=== PATIENT | female | born 1950 | race Caucasian/White ===

== ENCOUNTER 2023-08-08 12:19 | Emergency (ER) | payer MEDICARE, OTHER ==
[2023-08-08] MEDS ORDERED: Sodium Chloride 0.9% 10 ML Syringe FLUSH PRN (13:10)
[2023-08-08] MEDS: Albuterol/Ipratropium 3.0-0.5 MG/3 ML Neb Soln NEB ONE ×2 (13:31→15:42)
[2023-08-08 13:42] LABS: BASOPHILS PERCENT AUTO 0.1 % (0.1-1.3); EOSINOPHILS ABSOLUTE AUTO 0.19 K/uL (0.00-0.40); EOSINOPHILS PERCENT AUTO 2.5 % (0.0-5.4); HEMATOCRIT 32.7 % (34.3-46.0); HEMOGLOBIN 11.7 g/dL (11.2-15.5); IMMATURE GRAN ABSOLUTE AUTO 0.03 K/uL (0.00-0.23); IMMATURE GRAN PERCENT AUTO 0.4 % (0.0-0.7); LYMPHOCYTES ABSOLUTE AUTO 1.71 K/uL (0.8-3.3); LYMPHOCYTES PERCENT AUTO 22.1 % (11.4-47.7); MEAN CORPUSCULAR HEMOGLOBIN 30.7 pg (31.6-35.5); MEAN CORPUSCULAR HGB CONC 35.8 g/dL (31.6-35.5); MEAN CORPUSCULAR VOLUME 85.8 fL (81.4-99.0); MONOCYTES ABSOLUTE AUTO 0.79 K/uL (0.20-0.90); MONOCYTES PERCENT AUTO 10.2 % (3.3-12.6); NEUTROPHILS ABSOLUTE AUTO 5.02 K/uL (1.0-7.6); NEUTROPHILS PERCENT AUTO 64.7 % (40.0-78.1); PLATELET COUNT,PLT 252 K/uL (130-375); RED BLOOD CELL COUNT 3.81 M/uL (3.77-5.24); WHITE BLOOD CELL COUNT,WBC 7.8 K/uL (3.2-11.0)
[2023-08-08 13:46] LABS: BASOPHILS ABSOLUTE AUTO 0.01 K/uL (0.00-0.10)
[2023-08-08 14:12] LABS: ALANINE AMINOTRANSFERASE,ALT 25 U/L (12-78); ALBUMIN 3.7 g/dL (3.4-5.0); ALKALINE PHOSPHATASE 112 U/L (46-116); ASPARTATE AMNIOTRANSFERASE,AST 24 U/L (15-37); BILIRUBIN TOTAL 0.9 mg/dL (0.2-1.0); BLOOD UREA NITROGEN,BUN 14 mg/dL (7-18); CALCIUM 9.7 mg/dL (8.5-10.1); CARBON DIOXIDE,CO2 23 mmol/L (21-32); CHLORIDE,CL 93 mmol/L (100-108); EST CRCL DRUG DOSING (CG) 43.91 mL/min; ESTIMATED GFR 60 mL/min (>60); GLUCOSE RANDOM 91 mg/dL (74-106); POTASSIUM,K 4.4 mmol/L (3.6-5.2); PROTEIN TOTAL,TP 7.5 g/dL (6.4-8.2); SODIUM,NA 127 mmol/L (140-148); TROPONIN I HIGH SENSITIVITY 15.4 pg/mL (<=60.3)
[2023-08-08 14:13] LABS: ANION GAP 15.4 mmol/L (5.0-14.0)
[2023-08-08] MEDS: Bumetanide 1 MG/4 ML MDV IVPUSH ONE (15:42)
== END 2023-08-08 17:21 | disposition home or self-care (01) ==
LOC: JP.ED 12:19
DX: J44.1 Chronic obstructive pulmonary disease with (acute) exacerbation (principal); I50.812 Chronic right heart failure; I25.10 Atherosclerotic heart disease of native coronary artery without angina pectoris; I25.2 Old myocardial infarction; K21.9 Gastro-esophageal reflux disease without esophagitis; Z99.81 Dependence on supplemental oxygen; Z87.891 Personal history of nicotine dependence; Z86.16 Personal history of COVID-19; Z79.899 Other long term (current) drug therapy; Z79.82 Long term (current) use of aspirin; Z88.0 Allergy status to penicillin; Z88.2 Allergy status to sulfonamides
CPT/HCPCS: 36415; 71046; 71046-26; 80053; 83880; 84484; 85025; 94640; 96374; 99284; 99285-25; J3490; J7620

== ENCOUNTER 2024-07-15 11:06 | Inpatient (IN) | payer MEDICARE, OTHER ==
[2024-07-15 11:38] LABS: BASOPHILS PERCENT AUTO 0.2 % (0.1-1.3); EOSINOPHILS ABSOLUTE AUTO 0.07 K/uL (0.00-0.40); EOSINOPHILS PERCENT AUTO 1.3 % (0.0-5.4); HEMATOCRIT 31.1 % (34.3-46.0); HEMOGLOBIN 10.2 g/dL (11.2-15.5); IMMATURE GRAN ABSOLUTE AUTO 0.07 K/uL (0.00-0.23); IMMATURE GRAN PERCENT AUTO 1.3 % (0.0-0.7); LYMPHOCYTES ABSOLUTE AUTO 1.13 K/uL (0.8-3.3); LYMPHOCYTES PERCENT AUTO 21.2 % (11.4-47.7); MEAN CORPUSCULAR HEMOGLOBIN 33.4 pg (31.6-35.5); MEAN CORPUSCULAR HGB CONC 32.8 g/dL (31.6-35.5); MONOCYTES ABSOLUTE AUTO 0.57 K/uL (0.20-0.90); MONOCYTES PERCENT AUTO 10.7 % (3.3-12.6); NEUTROPHILS ABSOLUTE AUTO 3.47 K/uL (1.0-7.6); NEUTROPHILS PERCENT AUTO 65.3 % (40.0-78.1); PLATELET COUNT,PLT 149 K/uL (130-375); RED BLOOD CELL COUNT 3.05 M/uL (3.77-5.24); WHITE BLOOD CELL COUNT,WBC 5.3 K/uL (3.2-11.0)
[2024-07-15 12:04] LABS: BASOPHILS ABSOLUTE AUTO 0.01 K/uL (0.00-0.10)
[2024-07-15 12:07] LABS: A/G RATIO 1.1 (1.2-2.2); ALANINE AMINOTRANSFERASE,ALT 21 U/L (12-78); ALBUMIN 3.6 g/dL (3.4-5.0); ALKALINE PHOSPHATASE 140 U/L (46-116); ANION GAP 13.3 mmol/L (5.0-14.0); ASPARTATE AMNIOTRANSFERASE,AST 18 U/L (15-37); BILIRUBIN TOTAL 0.8 mg/dL (0.2-1.0); BLOOD UREA NITROGEN,BUN 32 mg/dL (7-18); CALCIUM 9.1 mg/dL (8.5-10.1); CARBON DIOXIDE,CO2 26 mmol/L (21-32); CHLORIDE,CL 101 mmol/L (100-108); CREATININE 2.1 mg/dL (0.6-1.0); ESTIMATED GFR 24 mL/min (>60); GLUCOSE RANDOM 105 mg/dL (74-106); POTASSIUM,K 4.3 mmol/L (3.6-5.2); PRO B-TYPE NATRIUR PEPT,BNPPRO 3435 pg/mL (5-125); SODIUM,NA 136 mmol/L (140-148); TROPONIN I HIGH SENSITIVITY 16.1 pg/mL (<=60.3)
[2024-07-15] MEDS: Bumetanide 1 MG/4 ML MDV IVPUSH ONE (12:41)
[2024-07-15] MEDS: Albuterol/Ipratropium 3.0-0.5 MG/3 ML Neb Soln NEB ONE (14:06)
[2024-07-15] MEDS: Iopamidol 755 Mg/ML 100 ML Bottle IV SCH (16:28)
[2024-07-15] MEDS: Sodium Chloride 0.9% 100 ML IV SCH (16:28)
[2024-07-15] MEDS: cefTRIAXone 1 GM in Sodium Chloride 0.9% 50 ML IV SCH (17:26)
[2024-07-15] MEDS ORDERED: Ondansetron 4 MG Tab.DIS PO PRN (17:47)
[2024-07-15] MEDS ORDERED: Acetaminophen 325 MG Tab PO PRN (17:47)
[2024-07-15] MEDS ORDERED: Ondansetron 4 MG/2 ML SDV IV PRN (17:47)
[2024-07-15] MEDS ORDERED: Magnesium Hydroxide 400 MG/5 ML Susp 30 ML Cup PO PRN (17:47)
[2024-07-15] MEDS: guaiFENesin/Dextromethorphan 100-10 MG/5 ML Soln 10 ML Cup PO PRN (18:14)
[2024-07-15] MEDS: Benzonatate 100 MG Cap PO PRN (18:15)
[2024-07-15] MEDS: Sodium Chloride 0.9% 1,000 ML IV SCH (18:15)
[2024-07-15] MEDS: Lactobacillus Rhamnosus GG (Probiotic) Cap PO SCH (20:54)
[2024-07-15] MEDS: Apixaban 5 MG Tab PO SCH (20:54)
[2024-07-15] MEDS: Doxycycline 100 MG Cap PO SCH (20:54)
[2024-07-15] MEDS: Metoprolol Succinate 50 MG Tab.ER PO SCH (20:54)
[2024-07-15] MEDS: Albuterol/Ipratropium 3.0-0.5 MG/3 ML Neb Soln INH SCH (20:55)
[2024-07-15] MEDS: Formoterol/Mometasone 200-5 MCG 8.8 GM Inhaler INH SCH (20:55)
[2024-07-15] MEDS: Losartan 50 MG Tab PO SCH (20:55)
[2024-07-15] MEDS ORDERED: Non-Formulary Medication 1 Each (Budesonide/Formoterol [Symbicort 160-4.5 Mcg Inhaler (6 G INH SCH (21:00)
[2024-07-16] MEDS: Albuterol 0.083% 2.5 MG/3 ML Neb Soln NEB PRN (03:04)
[2024-07-16 06:01] LABS: HEMATOCRIT 30.4 % (34.3-46.0); HEMOGLOBIN 9.9 g/dL (11.2-15.5); MEAN CORPUSCULAR HEMOGLOBIN 33.2 pg (31.6-35.5); MEAN CORPUSCULAR HGB CONC 32.6 g/dL (31.6-35.5); RED BLOOD CELL COUNT 2.98 M/uL (3.77-5.24); WHITE BLOOD CELL COUNT,WBC 4.9 K/uL (3.2-11.0)
[2024-07-16 06:17] LABS: ANION GAP 10.6 mmol/L (5.0-14.0); CALCIUM 8.7 mg/dL (8.5-10.1); EST CRCL DRUG DOSING (CG) 21.63 mL/min; POTASSIUM,K 3.7 mmol/L (3.6-5.2)
[2024-07-16] MEDS: Pantoprazole 40 MG Tab.CR PO SCH (07:12)
[2024-07-16] MEDS: Levothyroxine 112 MCG Tab PO SCH (07:12)
[2024-07-16] MEDS: Levothyroxine 25 MCG Tab PO SCH (07:12)
[2024-07-16] MEDS ORDERED: Non-Formulary Medication 1 Each (Levothyroxine [Levothyroxine] 125 MCG Tablet) PO SCH (07:30)
[2024-07-16] MEDS: Loratadine 10 MG Tab PO SCH (08:31)
[2024-07-16] MEDS: Aspirin 81 MG Tab.EC PO SCH (08:31)
[2024-07-16] MEDS: Amiodarone 200 MG Tab PO SCH (08:32)
[2024-07-16] MEDS: Isosorbide Mononitrate 30 MG Tab.ER PO SCH (08:34)
[2024-07-16] MEDS ORDERED: Non-Formulary Medication 1 Each (Omeprazole [Omeprazole] 40 MG Capsule.Dr) PO SCH (09:00)
[2024-07-16] MEDS ORDERED: Non-Formulary Medication 1 Each (Fexofenadine [Allegra] 180 MG Tablet) PO SCH (09:00)
[2024-07-16] MEDS ORDERED: METOPROLOL 100 MG PO SCH (21:00)
[2024-07-16] MEDS ORDERED: SYMBICORT INH SCH (21:00)
[2024-07-16] MEDS ORDERED: Formoterol/Mometasone 200-5 MCG 8.8 GM Inhaler INH SCH (21:00)
[2024-07-16] MEDS: Metoprolol Succinate 50 MG Tab.ER PO SCH (21:11)
[2024-07-16] MEDS: Losartan 50 MG Tab PO SCH (21:12)
[2024-07-16] MEDS: Apixaban 5 MG Tab PO SCH (21:12)
[2024-07-16] MEDS: Formoterol/Mometasone 200-5 MCG 8.8 GM Inhaler INH SCH (21:12)
[2024-07-17] MEDS ORDERED: OMEPRAZOLE 40MG CAP (PTOM) PO SCH (07:30)
[2024-07-17] MEDS ORDERED: LEVOTHYROXINE 137 MCG PO SCH (07:30)
[2024-07-17] MEDS: Pantoprazole 40 MG Tab.CR PO SCH (08:09)
[2024-07-17] MEDS: Levothyroxine 112 MCG Tab PO SCH (08:09)
[2024-07-17] MEDS: Levothyroxine 25 MCG Tab PO SCH (08:09)
[2024-07-17] MEDS ORDERED: AMIODARONE 200 MG PO SCH (09:00)
[2024-07-17] MEDS: Sennosides/Docusate Sodium 50-8.6 MG Tab PO PRN (09:18)
[2024-07-17] MEDS: Isosorbide Mononitrate 30 MG Tab.ER PO SCH (09:19)
[2024-07-17] MEDS: Amiodarone 200 MG Tab PO SCH (09:19)
== END 2024-07-17 11:15 | disposition home or self-care (01) | DRG 202 ==
LOC: JP.ED 11:06 → JP.MS 17:18 → OBSVTOIN 07-16 13:12
PROVIDERS: ADMIT Internal Medicine; ATTEND Internal Medicine
PROC: 5A0935A Assistance with Respiratory Ventilation, Less than 24 Consecutive Hours, High Flow/Velocity Cannula (ICD-10-PCS; principal; 2024-07-15)
DX: J20.9 Acute bronchitis, unspecified (principal); J96.21 Acute and chronic respiratory failure with hypoxia; I50.32 Chronic diastolic (congestive) heart failure; Z66 Do not resuscitate; H91.90 Unspecified hearing loss, unspecified ear; I25.10 Atherosclerotic heart disease of native coronary artery without angina pectoris; I25.2 Old myocardial infarction; Z79.890 Hormone replacement therapy; J44.9 Chronic obstructive pulmonary disease, unspecified; K21.9 Gastro-esophageal reflux disease without esophagitis; N18.9 Chronic kidney disease, unspecified; G89.29 Other chronic pain; M54.9 Dorsalgia, unspecified; I50.812 Chronic right heart failure; J43.9 Emphysema, unspecified; I48.0 Paroxysmal atrial fibrillation; N18.32 Chronic kidney disease, stage 3b; Z85.118 Personal history of other malignant neoplasm of bronchus and lung; Z88.0 Allergy status to penicillin; Z88.2 Allergy status to sulfonamides; Z79.01 Long term (current) use of anticoagulants; Z98.890 Other specified postprocedural states; Z79.82 Long term (current) use of aspirin; Z98.49 Cataract extraction status, unspecified eye; Z86.16 Personal history of COVID-19; Z79.899 Other long term (current) drug therapy; Z99.81 Dependence on supplemental oxygen; Z96.619 Presence of unspecified artificial shoulder joint; Z96.659 Presence of unspecified artificial knee joint
CPT/HCPCS: 36415 ×2; 71045; 71275; 80048; 80053; 83605; 83880; 84484; 85025; 85027; 85379; 87070; 87205; 94640 ×7; 94667; 96374; 99285; A9270 ×28; J0696; J3490; J7030 ×2; Q9967; 87077; 96365; 96375; 99222; 99232; 99238; G0378

== ENCOUNTER 2024-09-06 09:00 | Inpatient (IN) | payer MEDICARE, OTHER ==
[2024-09-06 09:53] LABS: BASE EXCESS ARTERIAL 1.2 mm/L; BICARBONATE,ARTERIAL 24.6 mmol/L (22.0-26.0); O2 SATURATION ARTERIAL 89.4 % (95.0-98.0); OXYHEMOGLOBIN 85.8 %; PCO2 ARTERIAL 35.6 mmHg (35.0-42.0); PO2 ARTERIAL 58.4 mmHg (75.0-100.0); TOTAL HEMOGLOBIN 8.7 g/dL (12.0-16.0)
[2024-09-06 09:55] LABS: BASOPHILS PERCENT AUTO 0.1 % (0.1-1.3); EOSINOPHILS ABSOLUTE AUTO 0.09 K/uL (0.00-0.40); EOSINOPHILS PERCENT AUTO 1.2 % (0.0-5.4); IMMATURE GRAN ABSOLUTE AUTO 0.06 K/uL (0.00-0.23); IMMATURE GRAN PERCENT AUTO 0.8 % (0.0-0.7); LYMPHOCYTES ABSOLUTE AUTO 0.55 K/uL (0.8-3.3); LYMPHOCYTES PERCENT AUTO 7.3 % (11.4-47.7); MONOCYTES ABSOLUTE AUTO 0.48 K/uL (0.20-0.90); MONOCYTES PERCENT AUTO 6.4 % (3.3-12.6); NEUTROPHILS ABSOLUTE AUTO 6.35 K/uL (1.0-7.6); NEUTROPHILS PERCENT AUTO 84.2 % (40.0-78.1); PLATELET COUNT,PLT 133 K/uL (130-375); RED BLOOD CELL COUNT 2.42 M/uL (3.77-5.24); WHITE BLOOD CELL COUNT,WBC 7.5 K/uL (3.2-11.0)
[2024-09-06 09:58] LABS: BASOPHILS ABSOLUTE AUTO 0.01 K/uL (0.00-0.10)
[2024-09-06 10:14] LABS: A/G RATIO 1.0 (1.2-2.2); ALANINE AMINOTRANSFERASE,ALT 17 U/L (12-78); ASPARTATE AMNIOTRANSFERASE,AST 14 U/L (15-37); BILIRUBIN TOTAL 0.9 mg/dL (0.2-1.0); BLOOD UREA NITROGEN,BUN 26 mg/dL (7-18); CARBON DIOXIDE,CO2 29 mmol/L (21-32); CHLORIDE,CL 103 mmol/L (100-108); CREATININE 2.0 mg/dL (0.6-1.0); EST CRCL DRUG DOSING (CG) 21.63 mL/min; ESTIMATED GFR 26 mL/min (>60); GLUCOSE RANDOM 117 mg/dL (74-106); POTASSIUM,K 3.7 mmol/L (3.6-5.2); PROTEIN TOTAL,TP 6.7 g/dL (6.4-8.2); SODIUM,NA 140 mmol/L (140-148)
[2024-09-06] MEDS: methylPREDNISolone Sodium Succinate 125 MG/2 ML SDV IVPUSH ONE (10:32)
[2024-09-06 14:19] LABS: RETICULOCYTE COUNT PERCENT 4.58 % (0.53-2.48)
[2024-09-06 14:22] LABS: IRON,FE 39 ug/dL (50-170); PERCENT FE SATURATION 15 % (20-55)
[2024-09-06] MEDS ORDERED: Sodium Chloride 0.9% 10 ML Syringe FLUSH ONE (15:20)
[2024-09-06] MEDS ORDERED: Iopamidol 755 Mg/ML 100 ML Bottle IV ONE (15:20)
[2024-09-06] MEDS: Iopamidol 755 Mg/ML 100 ML Bottle IV SCH (15:44)
[2024-09-06] MEDS: Sodium Chloride 0.9% 10 ML Syringe FLUSH ONE (15:44)
[2024-09-06] MEDS ORDERED: Sodium Chloride 0.9% 10 ML Syringe IV PRN (18:00)
[2024-09-06] MEDS ORDERED: Non-Formulary Medication 1 Each (Losartan [Cozaar] 100 MG Tablet) PO SCH (21:00)
[2024-09-06] MEDS ORDERED: Non-Formulary Medication 1 Each (Cyclobenzaprine [Flexeril] 10 MG Tablet) PO SCH (21:00)
[2024-09-07 05:58] LABS: BASOPHILS PERCENT AUTO 0.0 % (0.1-1.3); EOSINOPHILS PERCENT AUTO 0.0 % (0.0-5.4); IMMATURE GRAN ABSOLUTE AUTO 0.05 K/uL (0.00-0.23); IMMATURE GRAN PERCENT AUTO 0.9 % (0.0-0.7); LYMPHOCYTES ABSOLUTE AUTO 0.37 K/uL (0.8-3.3); LYMPHOCYTES PERCENT AUTO 6.3 % (11.4-47.7); MONOCYTES ABSOLUTE AUTO 0.26 K/uL (0.20-0.90); MONOCYTES PERCENT AUTO 4.4 % (3.3-12.6); NEUTROPHILS ABSOLUTE AUTO 5.18 K/uL (1.0-7.6); NEUTROPHILS PERCENT AUTO 88.4 % (40.0-78.1); PLATELET COUNT,PLT 118 K/uL (130-375); RED BLOOD CELL COUNT 2.28 M/uL (3.77-5.24); WHITE BLOOD CELL COUNT,WBC 5.9 K/uL (3.2-11.0)
[2024-09-07 06:07] LABS: BASOPHILS ABSOLUTE AUTO 0.00 K/uL (0.00-0.10); EOSINOPHILS ABSOLUTE AUTO 0.00 K/uL (0.00-0.40)
[2024-09-07 06:15] LABS: A/G RATIO 1.0 (1.2-2.2); ALANINE AMINOTRANSFERASE,ALT 15 U/L (12-78); ASPARTATE AMNIOTRANSFERASE,AST 13 U/L (15-37); BILIRUBIN TOTAL 0.4 mg/dL (0.2-1.0); BLOOD UREA NITROGEN,BUN 28 mg/dL (7-18); CARBON DIOXIDE,CO2 26 mmol/L (21-32); CHLORIDE,CL 104 mmol/L (100-108); CREATININE 1.8 mg/dL (0.6-1.0); EST CRCL DRUG DOSING (CG) 24.04 mL/min; ESTIMATED GFR 29 mL/min (>60); GLUCOSE RANDOM 137 mg/dL (74-106); POTASSIUM,K 4.1 mmol/L (3.6-5.2); PROTEIN TOTAL,TP 6.2 g/dL (6.4-8.2); SODIUM,NA 138 mmol/L (140-148)
[2024-09-07] MEDS ORDERED: Non-Formulary Medication 1 Each (Levothyroxine [Levothyroxine] 125 MCG Tablet) PO SCH (07:30)
[2024-09-07] MEDS: Cholecalciferol (Vitamin D3) 25 MCG Tab PO SCH (08:36)
[2024-09-07] MEDS: Diltiazem 120 MG Cap.CD PO SCH (08:37)
[2024-09-07] MEDS ORDERED: DILTIAZEM 240 MG PO SCH (09:00)
[2024-09-07] MEDS ORDERED: METOPROLOL SUCCINATE 100 MG PO SCH (09:00)
[2024-09-07] MEDS ORDERED: Non-Formulary Medication 1 Each (Fexofenadine [Allegra] 180 MG Tablet) PO SCH (09:00)
[2024-09-07] MEDS ORDERED: Non-Formulary Medication 1 Each (Cholecalciferol (Vitamin D3) [Vitamin D3] 1,250 MCG Table PO SCH (09:00)
[2024-09-07] MEDS: SYMBICORT INH SCH (14:22)
[2024-09-07 18:16] LABS: BASE EXCESS VENOUS -0.8 mm/L; BICARBONATE,VENOUS 23.8 mmol/L; O2 SATURATION VENOUS 88.4; OXYHEMOGLOBIN 84.0 %; PCO2 VENOUS 41.7 mm/Hg; PH,VENOUS 7.374 (7.350-7.450); PO2 VENOUS 59.5 mm/Hg; TOTAL HEMOGLOBIN 9.7 g/dL (12.0-16.0)
[2024-09-07 18:32] LABS: BLOOD UREA NITROGEN,BUN 34.0 mg/dL (7-18); CARBON DIOXIDE,CO2 27.0 mmol/L (21-32); CHLORIDE,CL 103.0 mmol/L (100-108); CREATININE 2.0 mg/dL (0.6-1.0); EST CRCL DRUG DOSING (CG) 21.63 mL/min; ESTIMATED GFR 26.0 mL/min (>60); GLUCOSE RANDOM 134.0 mg/dL (74-106); POTASSIUM,K 4.1 mmol/L (3.6-5.2); SODIUM,NA 139.0 mmol/L (140-148)
[2024-09-07] MEDS: Ipratropium 0.02% 0.5 MG/2.5 ML Neb Soln NEB SCH (19:45)
[2024-09-08 05:45] LABS: BASOPHILS PERCENT AUTO 0.1 % (0.1-1.3); EOSINOPHILS PERCENT AUTO 0.0 % (0.0-5.4); IMMATURE GRAN ABSOLUTE AUTO 0.06 K/uL (0.00-0.23); IMMATURE GRAN PERCENT AUTO 0.6 % (0.0-0.7); LYMPHOCYTES ABSOLUTE AUTO 0.62 K/uL (0.8-3.3); LYMPHOCYTES PERCENT AUTO 6.6 % (11.4-47.7); MONOCYTES ABSOLUTE AUTO 0.63 K/uL (0.20-0.90); MONOCYTES PERCENT AUTO 6.7 % (3.3-12.6); NEUTROPHILS ABSOLUTE AUTO 8.04 K/uL (1.0-7.6); NEUTROPHILS PERCENT AUTO 86.0 % (40.0-78.1); PLATELET COUNT,PLT 130 K/uL (130-375); RED BLOOD CELL COUNT 2.56 M/uL (3.77-5.24); WHITE BLOOD CELL COUNT,WBC 9.4 K/uL (3.2-11.0)
[2024-09-08 05:53] LABS: BASOPHILS ABSOLUTE AUTO 0.01 K/uL (0.00-0.10); EOSINOPHILS ABSOLUTE AUTO 0.00 K/uL (0.00-0.40)
[2024-09-08 06:05] LABS: A/G RATIO 1.1 (1.2-2.2); ALANINE AMINOTRANSFERASE,ALT 16 U/L (12-78); ASPARTATE AMNIOTRANSFERASE,AST 10 U/L (15-37); BILIRUBIN TOTAL 0.4 mg/dL (0.2-1.0); BLOOD UREA NITROGEN,BUN 37 mg/dL (7-18); CARBON DIOXIDE,CO2 28 mmol/L (21-32); CHLORIDE,CL 106 mmol/L (100-108); CREATININE 2.0 mg/dL (0.6-1.0); EST CRCL DRUG DOSING (CG) 21.63 mL/min; ESTIMATED GFR 26 mL/min (>60); GLUCOSE RANDOM 111 mg/dL (74-106); POTASSIUM,K 4.0 mmol/L (3.6-5.2); PROTEIN TOTAL,TP 5.9 g/dL (6.4-8.2); SODIUM,NA 141 mmol/L (140-148)
[2024-09-09 06:00] LABS: BASOPHILS PERCENT AUTO 0.1 % (0.1-1.3); EOSINOPHILS PERCENT AUTO 0.1 % (0.0-5.4); IMMATURE GRAN ABSOLUTE AUTO 0.05 K/uL (0.00-0.23); IMMATURE GRAN PERCENT AUTO 0.6 % (0.0-0.7); LYMPHOCYTES ABSOLUTE AUTO 0.70 K/uL (0.8-3.3); LYMPHOCYTES PERCENT AUTO 8.0 % (11.4-47.7); MONOCYTES ABSOLUTE AUTO 0.65 K/uL (0.20-0.90); MONOCYTES PERCENT AUTO 7.4 % (3.3-12.6); NEUTROPHILS ABSOLUTE AUTO 7.32 K/uL (1.0-7.6); NEUTROPHILS PERCENT AUTO 83.8 % (40.0-78.1); PLATELET COUNT,PLT 132 K/uL (130-375); RED BLOOD CELL COUNT 2.83 M/uL (3.77-5.24); WHITE BLOOD CELL COUNT,WBC 8.7 K/uL (3.2-11.0)
[2024-09-09 06:02] LABS: BASOPHILS ABSOLUTE AUTO 0.01 K/uL (0.00-0.10); EOSINOPHILS ABSOLUTE AUTO 0.01 K/uL (0.00-0.40)
[2024-09-09 06:20] LABS: A/G RATIO 1.0 (1.2-2.2); ALANINE AMINOTRANSFERASE,ALT 18 U/L (12-78); ASPARTATE AMNIOTRANSFERASE,AST 13 U/L (15-37); BILIRUBIN TOTAL 0.4 mg/dL (0.2-1.0); BLOOD UREA NITROGEN,BUN 40 mg/dL (7-18); CARBON DIOXIDE,CO2 29 mmol/L (21-32); CHLORIDE,CL 103 mmol/L (100-108); CREATININE 1.9 mg/dL (0.6-1.0); EST CRCL DRUG DOSING (CG) 22.77 mL/min; ESTIMATED GFR 28 mL/min (>60); GLUCOSE RANDOM 97 mg/dL (74-106); POTASSIUM,K 3.8 mmol/L (3.6-5.2); PROTEIN TOTAL,TP 6.5 g/dL (6.4-8.2); SODIUM,NA 141 mmol/L (140-148)
[2024-09-10 06:22] LABS: PLATELET COUNT,PLT 144.0 K/uL (130-375); RED BLOOD CELL COUNT 2.78 M/uL (3.77-5.24); WHITE BLOOD CELL COUNT,WBC 8.5 K/uL (3.2-11.0)
[2024-09-10 06:36] LABS: BLOOD UREA NITROGEN,BUN 42.0 mg/dL (7-18); CARBON DIOXIDE,CO2 30.0 mmol/L (21-32); CHLORIDE,CL 104.0 mmol/L (100-108); CREATININE 1.6 mg/dL (0.6-1.0); EST CRCL DRUG DOSING (CG) 27.04 mL/min; ESTIMATED GFR 34.0 mL/min (>60); GLUCOSE RANDOM 92.0 mg/dL (74-106); POTASSIUM,K 3.6 mmol/L (3.6-5.2); SODIUM,NA 140.0 mmol/L (140-148)
[2024-09-10] MEDS: Magnesium Hydroxide 400 MG/5 ML Susp 30 ML Cup PO ONE (10:18)
== END 2024-09-10 14:10 | disposition home or self-care (01) | DRG 189 ==
LOC: JP.ED 09:00 → JP.ICU 11:41 → JP.MS 09-09 16:31
PROVIDERS: ADMIT Student in an Organized Health Care Education/Training Program; ATTEND Internal Medicine
PROC: 5A0935A Assistance with Respiratory Ventilation, Less than 24 Consecutive Hours, High Flow/Velocity Cannula (ICD-10-PCS; principal; 2024-09-06)
PROC: 4A033R1 Measurement of Arterial Saturation, Peripheral, Percutaneous Approach (ICD-10-PCS; 2024-09-06)
PROC: 3E03329 Introduction of Other Anti-infective into Peripheral Vein, Percutaneous Approach (ICD-10-PCS; 2024-09-06)
PROC: 30233N1 Transfusion of Nonautologous Red Blood Cells into Peripheral Vein, Percutaneous Approach (ICD-10-PCS; 2024-09-07)
DX: J96.21 Acute and chronic respiratory failure with hypoxia (principal); J44.1 Chronic obstructive pulmonary disease with (acute) exacerbation; I13.0 Hypertensive heart and chronic kidney disease with heart failure and stage 1 through stage 4 chronic kidney disease, or unspecified chronic kidney disease; J44.0 Chronic obstructive pulmonary disease with (acute) lower respiratory infection; N18.9 Chronic kidney disease, unspecified; I50.42 Chronic combined systolic (congestive) and diastolic (congestive) heart failure; Z66 Do not resuscitate; D53.9 Nutritional anemia, unspecified; J43.9 Emphysema, unspecified; J20.9 Acute bronchitis, unspecified; I25.10 Atherosclerotic heart disease of native coronary artery without angina pectoris; K21.9 Gastro-esophageal reflux disease without esophagitis; M54.9 Dorsalgia, unspecified; G89.29 Other chronic pain; E03.9 Hypothyroidism, unspecified; Z96.659 Presence of unspecified artificial knee joint; Z96.619 Presence of unspecified artificial shoulder joint; I48.0 Paroxysmal atrial fibrillation; H91.90 Unspecified hearing loss, unspecified ear; I49.3 Ventricular premature depolarization; N18.32 Chronic kidney disease, stage 3b; Z85.118 Personal history of other malignant neoplasm of bronchus and lung; Z86.16 Personal history of COVID-19; I25.2 Old myocardial infarction; Z79.01 Long term (current) use of anticoagulants; Z87.891 Personal history of nicotine dependence; Z88.0 Allergy status to penicillin; Z88.2 Allergy status to sulfonamides; Z79.82 Long term (current) use of aspirin; Z79.899 Other long term (current) drug therapy; Z79.890 Hormone replacement therapy; Z98.49 Cataract extraction status, unspecified eye; Z98.890 Other specified postprocedural states; Z79.52 Long term (current) use of systemic steroids; Z92.21 Personal history of antineoplastic chemotherapy; Z92.3 Personal history of irradiation
CPT/HCPCS: 36415; 36600; 71046 ×2; 80053; 82607; 82728; 82803; 83605; 83735; 85025; 85045; 96374; 99285; J2919; 36430; 71275; 71275-26; 80048; 83550; 85027; 86850; 86900; 86901; 86920; 86922; 94640; 94667; 97161-GP; 97165-GO; 97530-GP; 99223; 99232; 99238; 99284; A9270-GY; J0696; J7030; J7512; J7644; P9016; Q9967

== ENCOUNTER 2024-10-10 10:22 | Emergency (ER) | payer MEDICARE, OTHER ==
[2024-10-10 11:39] LABS: BASOPHILS PERCENT AUTO 0.2 % (0.1-1.3); EOSINOPHILS ABSOLUTE AUTO 0.07 K/uL (0.00-0.40); EOSINOPHILS PERCENT AUTO 1.1 % (0.0-5.4); IMMATURE GRAN ABSOLUTE AUTO 0.05 K/uL (0.00-0.23); IMMATURE GRAN PERCENT AUTO 0.8 % (0.0-0.7); LYMPHOCYTES ABSOLUTE AUTO 0.69 K/uL (0.8-3.3); LYMPHOCYTES PERCENT AUTO 11.3 % (11.4-47.7); MONOCYTES ABSOLUTE AUTO 0.52 K/uL (0.20-0.90); MONOCYTES PERCENT AUTO 8.5 % (3.3-12.6); NEUTROPHILS ABSOLUTE AUTO 4.79 K/uL (1.0-7.6); NEUTROPHILS PERCENT AUTO 78.1 % (40.0-78.1); PLATELET COUNT,PLT 131 K/uL (130-375); RED BLOOD CELL COUNT 3.27 M/uL (3.77-5.24); WHITE BLOOD CELL COUNT,WBC 6.1 K/uL (3.2-11.0)
[2024-10-10 11:40] LABS: CREATININE 2.2 mg/dL (0.5-1.0); EST CRCL DRUG DOSING (CG) 19.67 mL/min; ESTIMATED GFR 23 mL/min (>60)
[2024-10-10 11:42] LABS: BASOPHILS ABSOLUTE AUTO 0.01 K/uL (0.00-0.10)
[2024-10-10] MEDS: Sodium Chloride 0.9% 10 ML Syringe FLUSH ONE (11:50)
[2024-10-10] MEDS: Iopamidol 612 MG/ML 100 ML Bottle IV ONE (11:50)
[2024-10-10 12:05] LABS: A/G RATIO 1.0 (1.2-2.2); ALANINE AMINOTRANSFERASE,ALT 19 U/L (12-78); ASPARTATE AMNIOTRANSFERASE,AST 14 U/L (15-37); BILIRUBIN TOTAL 0.5 mg/dL (0.2-1.0); BLOOD UREA NITROGEN,BUN 29 mg/dL (7-18); CARBON DIOXIDE,CO2 29 mmol/L (21-32); CHLORIDE,CL 101 mmol/L (100-108); GLUCOSE RANDOM 100 mg/dL (74-106); POTASSIUM,K 4.5 mmol/L (3.6-5.2); PROTEIN TOTAL,TP 6.9 g/dL (6.4-8.2); SODIUM,NA 138 mmol/L (140-148)
[2024-10-10] MEDS ORDERED: fentaNYL 50 MCG/ML SDV IM ONE (13:02)
[2024-10-10] MEDS: fentaNYL 50 MCG/ML SDV IVPUSH ONE (13:22)
[2024-10-10] MEDS: methylPREDNISolone Sodium Succinate 125 MG/2 ML SDV IVPUSH ONE (13:24)
== END 2024-10-10 14:00 | disposition home or self-care (01) ==
LOC: JP.ED 10:22
DX: S22.42XA Multiple fractures of ribs, left side, initial encounter for closed fracture (principal); J44.1 Chronic obstructive pulmonary disease with (acute) exacerbation; I25.10 Atherosclerotic heart disease of native coronary artery without angina pectoris; I25.2 Old myocardial infarction; N18.9 Chronic kidney disease, unspecified; Z85.118 Personal history of other malignant neoplasm of bronchus and lung; Z88.0 Allergy status to penicillin; Z88.2 Allergy status to sulfonamides; Z79.01 Long term (current) use of anticoagulants; Z79.899 Other long term (current) drug therapy; Z79.890 Hormone replacement therapy; Z86.16 Personal history of COVID-19; X58.XXXA Exposure to other specified factors, initial encounter
CPT/HCPCS: 36415; 71250; 80053; 85025; 94640; 96374; 96375; 99285; A9270; J2919; J3010